=== PATIENT | male | born 1995 | race Caucasian/White ===

== ENCOUNTER 2023-07-02 18:08 | Emergency (ER) | payer OTHER ==
[2023-07-02 18:16] VITALS: BP 145/74; PULSE 83; RESP 18; TEMP 98; BMI 39.2
[2023-07-02] MEDS ORDERED: FAMOTIDINE 20 MG/50 ML IVPB 20 MG/50 ML MG IVPB ONE (19:43)
[2023-07-02] MEDS ORDERED: ACETAMINOPHEN INJECTION 100 ML IVPB ONE (19:43)
[2023-07-02] MEDS: ACETAMINOPHEN 1000 MG/100 ML BAG IVPB ONE (20:05)
[2023-07-02] MEDS: FAMOTIDINE 20 MG/50 ML IVPB 20 MG/50 ML MG IVPB ONE (20:05)
[2023-07-02 20:16] LABS: BASO % 0.5 % (0-2.0); EOS % 2.9 % (0-4.5); HEMATOCRIT 42.9 % (35.4-49); HEMOGLOBIN 14.9 GM/dL (11.7-16.9); LYMPH % 31.8 % (8-40); MCH 29.2 pg (25.7-33.7); MCHC 34.7 g/dl (32.0-35.9); MEAN PLT VOLUME 9.1 fl (7.5-11.1); MONO % 4.3 % (3.8-10.2); NEUT % 60.5 % (42.8-82.8); PLATELET COUNT 259 10^3/uL (134-434); RDW 13.2 % (11.9-15.9)
[2023-07-02 20:33] LABS: POTASSIUM 3.4 mmol/L (3.5-5.1)
[2023-07-02 20:35] LABS: CALCIUM 9.7 mg/dL (8.5-10.1)
[2023-07-02 20:36] LABS: ALBUMIN 4.3 g/dl (3.4-5.0); BLOOD UREA NITROGEN 9.4 mg/dL (7-18)
[2023-07-02 20:38] LABS: CREATININE 0.9 mg/dL (0.55-1.3)
[2023-07-02 20:40] LABS: BILIRUBIN,TOTAL 0.6 mg/dL (0.2-1); TOT PROT 7.7 g/dl (6.4-8.2)
== END 2023-07-02 22:09 | disposition home or self-care (01) ==
LOC: JER 18:08
PROC: 3E033GC Introduction of Other Therapeutic Substance into Peripheral Vein, Percutaneous Approach (ICD-10-PCS; principal; 2023-07-02)
PROC: 3E033NZ Introduction of Analgesics, Hypnotics, Sedatives into Peripheral Vein, Percutaneous Approach (ICD-10-PCS; 2023-07-02)
DX: R10.11 Right upper quadrant pain (principal); Z20.822 Contact with and (suspected) exposure to COVID-19
CPT/HCPCS: 0241U-QW; 36415; 76705-TC; 80053; 83690; 85025; 93005; 93010; 99285-25; J0131

== ENCOUNTER 2023-07-26 16:58 | Emergency (ER) | payer OTHER ==
[2023-07-26 17:02] VITALS: BP 158/92; PULSE 94; RESP 18; TEMP 98.5; BMI 36.5
== END 2023-07-26 18:13 | disposition home or self-care (01) ==
LOC: JERFT 16:58
DX: R20.0 Anesthesia of skin (principal); R20.2 Paresthesia of skin; R00.2 Palpitations
CPT/HCPCS: 93005; 93010; 99283-25